=== PATIENT | female | born 1985 | race Caucasian/White ===

== ENCOUNTER 2022-07-23 17:41 | Emergency (ER) | payer OTHER ==
[~2022-07-23] VITALS: Ht 170.2 cm; Wt 63.5 kg
[2022-07-23] MEDS ORDERED: CIPRO500 MG PO (20:47)
[2022-07-23] MEDS ORDERED: KETO10TA2 PO (20:47)
[2022-07-23] MEDS ORDERED: TAMS0.4C PO (20:47)
== END 2022-07-23 21:07 | disposition home or self-care (01) ==
LOC: ER 17:41
DX: R10.31 Right lower quadrant pain (principal); N13.2 Hydronephrosis with renal and ureteral calculous obstruction